=== PATIENT | male | born 1980 | race Caucasian/White ===

== ENCOUNTER → 2016-07-06 | Outpatient (CLI) | payer OTHER ==
--- NOTE | 2016-07-06 12:00 | US ---
EXAMINATION TYPE: US scrotum with doppler. Grayscale and color Doppler Duplex imaging performed of joss cruz scrotum. DATE OF EXAM: 07/06/2016 11:18 AM COMPARISON: NONE CLINICAL HISTORY: R10.2 Inguinal pain S39.91XA injury groin,. EXAM MEASUREMENTS: TESTICLES: Right Testicle: 4.7 x 1.9 x 3.1 cm Left Testicle: 4.5 x 2.0 x 2.7 cm EPIDIDYMIS HEAD: Right Epididymis: 1.1 cm Left Epididymis: 0.9 cm Doppler performed to assess for testicular vascularity; good bilateral color flow and waveforms are s een. There is no evidence of testicular torsion. Presence of hydroceles: no Presence of varicoceles: no TECHNOLOGIST IMPRESSION: normal appearing scrotal ultrasound No suspicious focal intratesticular masses identified bilaterally. No concerning scrotal fluid collec tion or hydrocele is seen. Satisfactory arterial flow to in venous return from both testicles is iden tified. Comparison view is unremarkable. IMPRESSION: Unremarkable study.
--- NOTE | 2016-07-06 12:03 | US ---
EXAMINATION TYPE: US groin extremity RT DATE OF EXAM: 07/06/2016 11:33 AM COMPARISON: CT abdomen pelvis September 11, 2013. CLINICAL HISTORY: R10.2 Inguinal pain S39.91XA injury groin. Patient had an inguinal hernia repair 2 years prior, he feels he is having the same symptoms as befor e. TECHNOLOGIST IMPRESSION: Unable to identify a hernia at this time. Scanning of the right groin shows no suspicious recurrent fat or bowel containing inguinal hernia on images saved. No worrisome mass or fluid collection is seen. IMPRESSION: No significant finding is seen to comp for patient's symptoms.
--- NOTE | 2016-07-06 12:04 | US ---
EXAMINATION TYPE: US abdomen complete DATE OF EXAM: 07/06/2016 11:06 AM COMPARISON: CT abdomen pelvis September 11, 2013 CLINICAL HISTORY: ,R10.9 ABDOMINAL PAIN. EXAM MEASUREMENTS: Liver Length: 13.1 cm Gallbladder Wall: 0.2 cm CBD: 0.3 cm Spleen: 10.0 cm Right Kidney: 10.9 x 3.9 x 6.0 cm Left Kidney: 10.6 x 5.6 4.5 cm TECHNOLOGIST IMPRESSION: Pancreas: wnl Liver: wnl Gallbladder: wnl Evidence for sonographic Hudson's sign: no CBD: wnl Spleen: wnl Right Kidney: wnl Left Kidney: wnl Upper IVC: wnl Abd Aorta: Bifurcation obscured by bowel gas The liver is homogenous. The intrahepatic portion of the IVC and visualized abdominal aorta are with in normal limits. There is no evidence of shadowing mobile cholelithiasis. Common bile duct is unre markable. The visualized portions of the pancreas are homogenous. The spleen is unremarkable. Kidn eys are symmetric and free of hydronephrosis. No renal lesions are seen. IMPRESSION: No significant finding is seen to account for patient's symptoms
== END | disposition home or self-care (01) ==
LOC: RADUSWWP 10:16
PROVIDERS: ATTEND Family Medicine
DX: R10.9 Unspecified abdominal pain (principal); R10.2 Pelvic and perineal pain; S39.91XA Unspecified injury of abdomen, initial encounter
CPT/HCPCS: 76700; 76870; 93975

== ENCOUNTER → 2016-07-07 | Outpatient (CLI) | payer OTHER ==
--- NOTE | 2016-07-07 11:19 | CT ---
EXAMINATION TYPE: CT abdomen pelvis w con DATE OF EXAM: 07/07/2016 10:51 AM COMPARISON: NONE HISTORY: Swelling/masss, RLQ pain CT DLP: 420.90 mGycm CONTRAST: CT scan of the abdomen and pelvis is performed with Oral Contrast and with IV Contrast, patient injec david with 100 ml mL of Omnipaque 300. FINDINGS: LUNG BASES-: No visible nodule. No infiltrate. LIVER/GB: No calcified gallstones. No space occupying hepatic lesion. Biliary tree is of normal ca liber. PANCREAS: No inflammation. No distinct mass. SPLEEN: No splenic enlargement. No lesion seen. ADRENALS: No nodule. No thickening. KIDNEYS/BLADDER: No hydronephrosis. No nephrolithiasis. No disctinct renal mass. Urinary bladder g rossly unremarkable. BOWEL: Normal appendix identified best on coronal image 37. On axial image 69 there is mild fatty str anding noted within the right lower quadrant adjacent to the colon. This could reflect an area of the epiploic appenndagitis . Correlate clinically. Normal bowel caliber. GENITAL ORGANS: No gross abnormality. LYMPH NODES: No greater than 1cm abdominal or pelvic lymph nodes are appreciated. AORTA: No significant abnormality. OSSEOUS STRUCTURES: No significant abnormality is seen. OTHER: No significant additional abnormality is seen. IMPRESSION: 1. Normal appendix is visualized. 2.On axial image 69 there is mild fatty stranding noted within the right lower quadrant adjacent to t he colon. This could reflect an area of the epiploic appenndagitis .
== END | disposition home or self-care (01) ==
LOC: RADCTMAIN 08:57
PROVIDERS: ATTEND Family Medicine
DX: R19.00 Intra-abdominal and pelvic swelling, mass and lump, unspecified site (principal); R10.31 Right lower quadrant pain
CPT/HCPCS: 74177; Q9967

== ENCOUNTER → 2016-07-08 | Outpatient (CLI) | payer OTHER ==
[2016-07-08 12:00] LABS: Basophils # (A) 0.1 k/uL (0-0.2); Basophils % (A) 1 %; CH 32.1; CHCM 32.8; Eosinophils # (A) 0.6 k/uL (0-0.7); Eosinophils % (A) 9 %; HCT 44.5 % (39.0-53.0); HDW 2.26; HGB 13.8 gm/dL (13.0-17.5); Luc % (Auto) 4; Lymphocytes # (A) 1.7 k/uL (1.0-4.8); Lymphocytes % (A) 23 %; MCH 30.6 pg (25.0-35.0); MCHC 31.1 g/dL (31.0-37.0); MCV 98.3 fL (80.0-100.0); Mean Platelet Volume 6.7; Monocytes # (A) 0.5 k/uL (0-1.0); Monocytes % (A) 7 %; Neutrophils # (A) 4.1 k/uL (1.3-7.7); Neutrophils % (A) 56 %; RBC 4.53 m/uL (4.30-5.90); RDW 13.1 % (11.5-15.5); WBC 7.2 k/uL (3.8-10.6); WBC (Perox) 7.53
--- NOTE | 2016-07-08 15:35 | P.OP ---
Date of Procedure: 07/08/16 Preoperative Diagnosis: Right inguinal hernia Postoperative Diagnosis: Right indirect inguinal hernia Procedure(s) Performed: Robot assisted laparoscopic inguinal hernia repair with mesh Implants: Bard 10 x 15 progrip mesh Anesthesia: FISH Surgeon: Juliet Lamas Pathology: none sent Condition: stable Disposition: PACU Indications for Procedure: Painful swelling in the right inguinal region. n Operative Findings: Right indirect inguinal hernia Description of Procedure: Informed consent was obtained patient and then The patient was brought to the operating room and placed in supine position. General anesthesia with endotracheal intubation was performed as per anesthesia team. A fernandez catheter was inserted under sterile aseptic precautions. Chlorhexidine was used to prep the skin followed by application of sterile drapes . He was placed in the lithotomy positionA timeout was performed to verify correct patient, correct procedure and correct side. Patient was confirmed to receive perioperative IV antibiotics, subcutaneous heparin 5000 units and bilateral SCDs were placed. The left upper quadrant point was identified and a stab incision was made. Veress needle was introduced and placement was confirmed with the help of the drop test. The abdomen was then insufflated to 15 mmHg. Once that was done 5 mm port was introduced into the left upper quadrant using the Optiview technique after which a 12 mm port was placed in the supraumbilical position and a 8 mm port in the right lower quadrant and tand left lower quadrant. The robot was then docked with the central camera port and the 2 side working ports. The degree of scope was introduced and the abdomen down through the 12 mm port site. Cardiere in the left hand and scissor in the right hand was introduced in the abdominal cavity after which the median umbilical fold was retracted laterally towards the left side a small incision was made at the junction of the umbilical fold and the peritoneum and carried all the way laterally thus creating a small plane in the preperitoneal space. This did this was further dissected with the help of blunt dissection using gentle stroking maneuvers all the way down to Luis ligament medially and laterally we went inferior exposing the vessels inferiorly. The vas was identified and the hernia sac was teased off of the spermatic cord gently with the help of blunt dissection and once it was taken off and was major that was reduced Bard Pro shank pinner mesh was introduced in the abdominal cavity with the lower part above the level of the peritoneal fold was then unfolded so that it covered all the orifices and covered the Luis's ligament medially once again pain positioned perfectly to seal was applied to the inferior edge of the mesh as well as around the Luis's ligament after which the peritoneal flaps were closed with the help of running oh Vioxx suture once that was done procedure was completed all incisions and camera was removed and a laparoscope was introduced and the 12 mm port site was closed with the help of a Aleksandr Jaureugi the direct vision after which gas was turned off abdomen was thoroughly desufflated skins was closed with the help of 4-0 Monocryl and Dermabond. Fernandez catheter was removed patient was extubated and taken to recovery room in stable condition patient tolerated the procedure well there were no complications
== END | disposition home or self-care (01) ==
LOC: LABWHC1 11:37
PROVIDERS: ATTEND Surgery
DX: R10.9 Unspecified abdominal pain (principal)
CPT/HCPCS: 36415; 85025

== ENCOUNTER → 2021-05-16 | Outpatient (CLI) | payer OTHER | END | disposition home or self-care (01) | LOC: LABWHC1 16:01 | PROVIDERS: ATTEND Emergency Medicine | DX: Z20.822 Contact with and (suspected) exposure to COVID-19 (principal) | CPT/HCPCS: 87635 ==